=== PATIENT | male | born 2000 | race Hispanic/Latino ===

== ENCOUNTER 2021-02-21 12:26 | Emergency (ER) | payer OTHER ==
[~2021-02-21] VITALS: Ht 182.9 cm; Wt 84.1 kg
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
[2021-02-21] MEDS ORDERED: CYCL-707 PO (20:18)
[2021-02-21] MEDS ORDERED: NAPR-837 PO (20:18)
[2021-02-21] MEDS ORDERED: ACETAMINOPHEN TAB 650MG DOSE (2X325MG) PO ONE (20:20)
[2021-02-21] MEDS ORDERED: NAPROXEN 250 MG TAB PO ONE (20:20)
[2021-02-21 20:29] VITALS: BP 129/61
== END 2021-02-21 20:59 | disposition home or self-care (01) ==
LOC: M ED 12:26
DX: S33.5XXA Sprain of ligaments of lumbar spine, initial encounter (principal); V48.0XXA Car driver injured in noncollision transport accident in nontraffic accident, initial encounter; Y92.9 Unspecified place or not applicable; Y93.9 Activity, unspecified; Y99.9 Unspecified external cause status

== ENCOUNTER 2021-03-13 16:07 | Emergency (ER) | payer OTHER ==
[~2021-03-13] VITALS: Ht 182.9 cm; Wt 84.1 kg
[~2021-03-13 16:07] MED LIST: CYCL-707 PO; NAPR-837 PO
[2021-03-13 16:08] VITALS: BP 129/60
[2021-03-13 17:58] LABS: GC DNA AMPLIFICATION POSITIVE (NEGATIVE)
== END 2021-03-13 19:55 | disposition left against medical advice (07) ==
LOC: M ED 16:07
DX: Z53.21 Procedure and treatment not carried out due to patient leaving prior to being seen by health care provider (principal)

== ENCOUNTER 2021-06-03 04:32 | Emergency (ER) | payer OTHER ==
[~2021-06-03] VITALS: Ht 182.9 cm; Wt 88.1 kg
[2021-06-03 04:51] VITALS: BP 119/59
[2021-06-03] MEDS ORDERED: DERMABOND TOPICAL SKIN ADHESIVE TOP ONE (08:10)
== END 2021-06-03 08:40 | disposition home or self-care (01) ==
LOC: M ED 04:32
DX: S01.81XA Laceration without foreign body of other part of head, initial encounter (principal); M25.511 Pain in right shoulder; Y04.8XXA Assault by other bodily force, initial encounter; Y92.9 Unspecified place or not applicable; Y93.9 Activity, unspecified; Y99.9 Unspecified external cause status

== ENCOUNTER 2022-09-15 13:45 | Emergency (ER) | payer OTHER ==
[~2022-09-15] VITALS: Ht 182.9 cm; Wt 102.6 kg
[2022-09-15] MEDS ORDERED: MELA3TAB49 PO (13:54)
[2022-09-15] MEDS ORDERED: IBUP-1022 PO (17:07)
[2022-09-15] MEDS ORDERED: BENZ200C70 PO (17:07)
[2022-09-15 17:16] VITALS: BP 135/61
== END 2022-09-15 17:17 | disposition home or self-care (01) ==
LOC: M ED 13:45
DX: J06.9 Acute upper respiratory infection, unspecified (principal)